=== PATIENT | female | born 1970 | race Caucasian/White ===

== ENCOUNTER 2025-10-07 16:02 | Emergency (ER) | payer OTHER | END 2025-10-07 18:40 | disposition home or self-care (01) | LOC: CSHERS 16:02 | DX: S86.911A Strain of unspecified muscle(s) and tendon(s) at lower leg level, right leg, initial encounter (principal); E11.9 Type 2 diabetes mellitus without complications; I10 Essential (primary) hypertension; X58.XXXA Exposure to other specified factors, initial encounter ==